=== PATIENT | male | born 1950 | race Two or more races ===

== ENCOUNTER 2017-10-16 05:24 | Inpatient (IN) | payer OTHER ==
--- NOTE | 2017-10-16 05:31 | EDPHY ---
H & P <Devyn Crawford - Last Filed: 10/16/17 08:04> Source: Patient, EMS <Clifford Coleman - Last Filed: 10/17/17 02:11> HPI/ROS: 0802: Spoke with Dr. Cox, radiologist, the preliminary head and neck CT angiogram reveals no abnormalities; details of report will follow in the next 30 minutes. Patient can now be placed in inpatient care. (Devyn Crawford) HPI CHIEF COMPLAINT: Dizziness worse with movement, nausea, vomiting HISTORY OF PRESENT ILLNESS: This patient very pleasant 67-year-old [place] male, and only speaks [place]an knees, his son-in-law is at bedside for translation, [facility] with nausea vomiting and dizziness that he describes as room spinning sensation. He denies neck pain , chest pain denies headache. He did have 3 episodes of vomiting with this. The dizziness woke him up from sleep. This started at 2:00 a.m. or about 4 hr ago. The dizziness has persisted. It is a room spinning sensation. It is worse when he goes to sit up. It is worse when he goes to open his eyes. It is worse with certain head positional movements. He prefers to lay back in the bed with his eyes closed as this prevents him from feeling further dizziness. He does report that he had this episode of dizziness 1 other time in 2012 in [facility]. No history of cardiovascular disease. No history of stroke. Past Medical History: Hypertension Past Surgical History: Denies surgical history Social History: Denies daily use drugs alcohol tobacco. Family History: Noncontributory ROS REVIEW OF SYSTEMS: A comprehensive 10 point review of systems is otherwise negative aside from elements mentioned in the history of present illness. Exam Constitutional appears well nontoxic, triage nursing summary reviewed, vital signs reviewed, awake/alert. Eyes normal conjunctivae and sclera, EOMI, PERRLA. HENT normal inspection, atraumatic, moist mucus membranes, no epistaxis, neck supple/ no meningismus, no raccoon eyes. Respiratory clear to auscultation bilaterally, normal breath sounds, no respiratory distress, no wheezing. Cardiovascular rate normal, regular rhythm, no murmur, no edema, distal pulses normal. Gastrointestinal soft, non-tender, no rebound, no guarding, normal bowel sounds, no distension, no pulsatile mass. Genitourinary no CVA tenderness. Musculoskeletal no midline vertebral tenderness, full range of motion, no calf swelling, no tenderness of extremities, no meningismus, good pulses, neurovascularly intact. Skin pink, warm, & dry, no rash, skin atraumatic. Neurologic awake, alert and oriented x 3, AAOx3, moves all 4 extremities equally, motor intact, sensory intact, CN II-XII intact, normal cerebellar, normal vision, normal speech. No focal neuro deficit on exam. However when he goes to sit up or move his head side to side he gets worsening dizziness. And additionally when he opens his eyes this dizziness becomes worse. He does have horizontal beating nystagmus. But no rotary nystagmus or vertical nystagmus. Psychiatric normal mood/affect. Heme/Lymph/Immune no lymphadenopathy. Differential Diagnosis: Includes but is not limited to in a particular order, acute vertigo, benign positional vertigo, Meniere's disease, posterior circulation stroke, dehydration, electrolyte disturbance Medical Decision Making: Plan for this patient IV establishment IV fluid bolus , p.o. meclizine, IV Valium 2.5 mg, gentle IV hydration, check basic blood work , CT scan head without contrast EKG, troponin re-evaluate. Re-evaluation: EKG interpretation by me on record in [employer] system. Impression time of EKG 6:01 a.m., this is sinus rhythm rate of 85. No acute ischemic change appreciated. 0659: I did go reassess this patient's time. He still complaining of dizziness it is somewhat improved. However he is too dizzy to go home. He will need to be admitted the hospital for vertigo. His CT scan of his head was unremarkable. Did not show any acute bleed. His blood work is unremarkable. Electrolytes appropriate. Nonischemic EKG. Normal troponin. No evidence of acute coronary syndrome or bleed in his head. Plan will be for admission hospitalist service for vertigo. 0707: Spoke with the hospitalist service Dr. Torres he has accepted admission. But did request that we do a CT angiogram of his head and neck. To rule out posterior circulation stroke. I do not believe he is having posterior circulation infarct causing his dizziness, however I believe this to be benign positional vertigo. However due to ongoing symptoms will proceed with CT angiogram head and neck. Plan will be for admission the hospital service for vertigo. If the CT angiogram head and neck does show posterior circulation stroke will consult Neurology. Dr. Crawford to follow up CT ANgio. 0730AM: Spoke with Dr. Torres again. Patient back from CT angiogram. Results are pending. I did recommend that he probably gets an inpatient MR as well. To make sure there is not a small infarct in the cerebellum. The CT angiogram will evaluate the blood vessels. He will have Neurology consult on this patient as well. Additionally did re-evaluate the time it is he is not vomiting. He is hemodynamically stable. Denies chest pain or shortness of breath. However does get worsening dizziness when he moves his head, or goes to sit up. (Clifford Coleman) Constitutional: Initial Vital Signs Temperature (C) 36.4 C 10/16/17 05:25 Heart Rate 87 10/16/17 05:25 Respiratory Rate 18 10/16/17 05:25 Blood Pressure 143/86 H 10/16/17 05:25 O2 Sat (%) 97 10/16/17 05:25 O2 Delivery Mode Nasal Cannula O2 (L/minute) 2 Allergies/Adverse Reactions: No Known Allergies Allergy (Unverified 10/16/17 05:46) Home Medications: Medication Instructions Recorded Lisinopril [Zestril 10 mg (*)] 10 mg PO DAILY 10/16/17 - Data Points Laboratory Results: Laboratory Results 10/16/17 05:30 10/16/17 05:30 Medications Given: Acetaminophen (Tylenol) 650 mg PO Q4HRS PRN PRN Reason: Pain, Mild/Fever, Can Take PO Stop: 04/14/18 07:14 Last Admin: 10/16/17 22:53 Dose: 650 mg Discontinued Medications Diazepam (Valium Injection) 2.5 mg IVP EDNOW ONE Stop: 10/16/17 05:43 Last Admin: 10/16/17 05:51 Dose: 2.5 mg Sodium Chloride (Ns) 1,000 mls @ 0 mls/hr IV EDNOW ONE; Wide Open PRN Reason: Protocol Stop: 10/16/17 05:42 Last Admin: 10/16/17 05:51 Dose: 1,000 mls Meclizine HCl (Meclizine Hcl) 25 mg PO EDNOW ONE Stop: 10/16/17 05:43 Last Admin: 10/16/17 05:51 Dose: 25 mg Ondansetron HCl (Zofran) 4 mg IVP EDNOW ONE Stop: 10/16/17 07:07 Last Admin: 10/16/17 07:07 Dose: 4 mg Departure <Devyn Crawford - Last Filed: 10/16/17 08:04> <Clifford Coleman - Last Filed: 10/17/17 02:11> - Departure Disposition: [facility] Inpatient Acute Clinical Impression: Vertigo, Dizziness Condition: Fair Report Scribed for: Devyn Crawford Report Scribed by: Kacey Yanez Date of Report: 10/16/17 Time of Report: 08:04 <Devyn Crawford - Last Filed: 10/16/17 08:04>
[2017-10-16] MEDS ORDERED: NS 1,000 ML IV ONE (05:41)
[2017-10-16] MEDS ORDERED: DIAZEPAM 10 MG/2 ML SYR IVP ONE (05:42)
[2017-10-16] MEDS ORDERED: MECLIZINE HCL 25 MG TAB PO ONE (05:42)
[2017-10-16] MEDS ORDERED: DIAZEPAM 10 MG/2 ML SYR ONE (05:43)
[2017-10-16 06:01] LABS: % IMMATURE GRANULYOCYTES 0.2 % (0.0-1.1); ABSOLUTE IMMATURE GRANULOCYTES 0.02 10^3/uL (0.00-0.10); ADD DIFF? NO; ADD MORPH? NO; ADD SCAN? NO; ATYPICAL LYMPHOCYTE FLAG 0 (0-99); FRAGMENT RBC FLAG 0 (0-99); HEMATOCRIT 47.3 % (40.0-51.0); HEMOGLOBIN 17.2 g/dL (13.7-17.5); LEFT SHIFT FLG 0 (0-99); LIPEMIA HEMOLYSIS FLAG 90 (0-99); MEAN CELL HEMOGLOBIN 30.4 pg (27.9-34.1); MEAN CELL HEMOGLOBIN CONCENTR. 36.4 g/dL (32.4-36.7); MEAN CELL VOLUME 83.7 fL (81.5-99.8); MEAN PLATELET VOLUME 10.2 fL (8.7-11.7); PLATELET CLUMPS FLAG 0 (0-99); PLATELET COUNT 267 10^3/uL (150-400); RED BLOOD CELL COUNT 5.65 10^6/uL (4.40-6.38); RED CELL DISTRIBUTION WIDTH 12.3 % (11.5-15.2)
--- NOTE | 2017-10-16 06:02 | CPEKG ---
Heart Rate: 85 RR Interval: 706 P-R Interval: 176 QRSD Interval: 84 QT Interval: 384 QTC Interval: 457 P [place]: 25 QRS [place]: 4 T Wave [place]: 22 EKG Severity - NORMAL ECG - EKG Impression: SINUS RHYTHM Electronically Signed By: Devyn Crawford 16-Oct-2017 15:16:30
[2017-10-16 06:09] LABS: APTT 26.2 SEC (23.0-38.0); INR 0.97 (0.83-1.16); PROTIME(PATIENT) 13.1 SEC (12.0-15.0)
[2017-10-16 06:10] LABS: ALANINE AMINOTRANSFERASE 37 IU/L (21-72); ALBUMIN 4.4 g/dL (3.5-5.0); ALKALINE PHOSPHATASE 101 IU/L (38-126); ANION GAP 17 mEq/L (8-16); ASPARTATE AMINOTRANSFERASE 25 IU/L (17-59); BILIRUBIN,TOTAL 0.4 mg/dL (0.1-1.4); BILIRUBIN-CONJUGATED 0.2 mg/dL (0.0-0.5); BILIRUBIN-UNCONJUGATED 0.2 mg/dL (0.0-1.1); CARBON DIOXIDE 19 mEq/l (22-31); CHLORIDE 106 mEq/L (97-110); CREATININE 0.8 mg/dL (0.7-1.3); GLOMERULAR FILTRATION RATE > 60; GLUCOSE 131 mg/dL (70-100); MAGNESIUM 1.8 mg/dL (1.6-2.3); SODIUM 142 mEq/L (134-144); TOTAL PROTEIN 7.5 g/dL (6.3-8.2)
[2017-10-16 06:22] LABS: CREATINE KINASE-MB FRACTION 3.18 ng/mL (0.00-3.19); TROPONIN I < 0.012 ng/mL (0.000-0.034)
[2017-10-16] MEDS ORDERED: ONDANSETRON 4 MG/2 ML VIAL ONE (07:05)
[2017-10-16] MEDS ORDERED: ONDANSETRON 4 MG/2 ML VIAL IVP ONE (07:06)
[2017-10-16] MEDS ORDERED: IOPAMIDOL (ISOVUE 370) 100 ML BTL IV ONE (07:09)
[2017-10-16] MEDS ORDERED: ONDANSETRON 4 MG/2 ML VIAL IVP PRN (07:15)
[2017-10-16] MEDS ORDERED: ONDANSETRON DISINTEGRATING 4 MG TAB PO PRN (07:15)
--- NOTE | 2017-10-16 07:21 | PDGENHP ---
History and Physical - Chief Complaint Dizziness - History of Present Illness 67 yo M Emir[place] speaking M w/ HTN presents with acute vertigo. Patient was woken from sleep with acute onset of a sensation of room spinning around 2 AM. This was accompanied by nausea and vomiting. The vertigo is somwhat positional in nature and is also exacerbated by eye opening. Symptoms were persistent despite meclizine and valium in the ED so he was admitted for observation. At the time of my evaluation patient remains quite symptomatic with only eye opening. History Information - Allergies/Home Medication List Allergies/Adverse Reactions: No Known Allergies Allergy (Unverified 10/16/17 05:46) Home Medications: Lisinopril [Zestril 20 mg (*)] 20 mg PO DAILY 10/16/17 [Last Taken Unknown] I have personally reviewed and updated: family history, medical history - Past Medical History hypertension - Family History Additional family history: Denies family hx of stroke - Social History Smoking Status: Never smoked Review of Systems Review of Systems: ROS: 10pt was reviewed & negative except for what was stated in HPI & below Physical Exam Physical Exam: Temp Pulse Resp BP Pulse Ox 36.4 C 76 16 140/87 H 95 10/16/17 05:25 10/16/17 06:03 10/16/17 06:03 10/16/17 06:03 10/16/17 06:03 Constitutional: not in pain, uncomfortable Eyes: PERRL, EOMI, other (R end stage horizontal nystagmus) Ears, Nose, Mouth, Throat: moist mucous membranes, no oral mucosal ulcers Cardiovascular: regular rate and rhythym, no murmur, rub, or gallop Respiratory: no respiratory distress, clear to auscultation Gastrointestinal: normoactive bowel sounds, soft, non-tender abdomen Skin: warm Musculoskeletal: full muscle strength, no muscle tenderness Neurologic: AAOx3, sensation intact bilaterally, CN II-XII Intact, No weakness, No numbness, No facial droop Lab Data & Imaging Review 10/16/17 05:30 10/16/17 05:30 WBC 8.53 10^3/uL (3.80-9.50) 10/16/17 05:30 RBC 5.65 10^6/uL (4.40-6.38) 10/16/17 05:30 Hgb 17.2 g/dL (13.7-17.5) 10/16/17 05:30 Hct 47.3 % (40.0-51.0) 10/16/17 05:30 MCV 83.7 fL (81.5-99.8) 10/16/17 05:30 MCH 30.4 pg (27.9-34.1) 10/16/17 05:30 MCHC 36.4 g/dL (32.4-36.7) 10/16/17 05:30 RDW 12.3 % (11.5-15.2) 10/16/17 05:30 Plt Count 267 10^3/uL (150-400) 10/16/17 05:30 MPV 10.2 fL (8.7-11.7) 10/16/17 05:30 Neut % (Auto) 77.1 % (39.3-74.2) H 10/16/17 05:30 Lymph % (Auto) 17.0 % (15.0-45.0) 10/16/17 05:30 Blount % (Auto) 5.0 % (4.5-13.0) 10/16/17 05:30 Eos % (Auto) 0.5 % (0.6-7.6) L 10/16/17 05:30 Baso % (Auto) 0.2 % (0.3-1.7) L 10/16/17 05:30 Nucleat RBC Rel Count 0.0 % (0.0-0.2) 10/16/17 05:30 Absolute Neuts (auto) 6.57 10^3/uL (1.70-6.50) H 10/16/17 05:30 Absolute Lymphs (auto) 1.45 10^3/uL (1.00-3.00) 10/16/17 05:30 Absolute Monos (auto) 0.43 10^3/uL (0.30-0.80) 10/16/17 05:30 Absolute Eos (auto) 0.04 10^3/uL (0.03-0.40) 10/16/17 05:30 Absolute Basos (auto) 0.02 10^3/uL (0.02-0.10) 10/16/17 05:30 Absolute Nucleated RBC 0.00 10^3/uL (0-0.01) 10/16/17 05:30 Immature Gran % 0.2 % (0.0-1.1) 10/16/17 05:30 Immature Gran # 0.02 10^3/uL (0.00-0.10) 10/16/17 05:30 PT 13.1 SEC (12.0-15.0) 10/16/17 05:30 INR 0.97 (0.83-1.16) 10/16/17 05:30 APTT 26.2 SEC (23.0-38.0) 10/16/17 05:30 Sodium 142 mEq/L (134-144) 10/16/17 05:30 Potassium 4.0 mEq/L (3.5-5.2) 10/16/17 05:30 Chloride 106 mEq/L (97-110) 10/16/17 05:30 Carbon Dioxide 19 mEq/l (22-31) L 10/16/17 05:30 Anion Gap 17 mEq/L (8-16) H 10/16/17 05:30 BUN 13 mg/dL (7-23) 10/16/17 05:30 Creatinine 0.8 mg/dL (0.7-1.3) 10/16/17 05:30 Estimated GFR > 60 10/16/17 05:30 Glucose 131 mg/dL (70-100) H 10/16/17 05:30 Calcium 10.0 mg/dL (8.5-10.4) 10/16/17 05:30 Magnesium 1.8 mg/dL (1.6-2.3) 10/16/17 05:30 Total Bilirubin 0.4 mg/dL (0.1-1.4) 10/16/17 05:30 Conjugated Bilirubin 0.2 mg/dL (0.0-0.5) 10/16/17 05:30 Unconjugated Bilirubin 0.2 mg/dL (0.0-1.1) 10/16/17 05:30 AST 25 IU/L (17-59) 10/16/17 05:30 ALT 37 IU/L (21-72) 10/16/17 05:30 Alkaline Phosphatase 101 IU/L (38-126) 10/16/17 05:30 Creatine Kinase 49 IU/L (0-224) 10/16/17 05:30 CK-MB (CK-2) Fraction 3.18 ng/mL (0.00-3.19) 10/16/17 05:30 Troponin I < 0.012 ng/mL (0.000-0.034) 10/16/17 05:30 Total Protein 7.5 g/dL (6.3-8.2) 10/16/17 05:30 Albumin 4.4 g/dL (3.5-5.0) 10/16/17 05:30 Lipase 126 IU/L (23-300) 10/16/17 05:30 Imaging Review: CTH with no acute findings. EKG Interpretation: Positive for: normal sinsus rhythm Assessment & Plan Assessment: 67 yo Emirati speaking M w/ HTN presents w/ acute onset vertigo. Plan: 1. Acute vertigo - Awoke patient from sleep about 4 hours prior to presentation ; accompanied by nausea and vomiting. Positional exacerbation of symptoms consistent with BPPV. However, noting severity, acute onset during sleep, and persistence of symptoms posterior circulation stroke is another consideration. - CT head with no acute findings - CTA Head and neck for further evaluation - Will not call stroke alert noting patient now out of window for tPA (5.5 hours post symptom onset). - Neurology consult placed - Consider MRI Diet - Regular Code - Full Ppx - SCDs Dispo - Admit to observation status
--- NOTE | 2017-10-16 09:58 | ASMTCMCOM ---
CM Note CM Note Notes: Spoke w/pt's dtr Martín, pt and spouse are Paraguayan and do not speak nepali. Dtr has concerns about paying for hospital stay. CM sent email to Medicaid to follow up with pt on Wednesday, dtr also given card for financial counseling. Dc needs unclear, RODY w/f. Date Signed: 10/16/2017 09:57 AM Electronically Signed By:Trinidad Alves RN
--- NOTE | 2017-10-16 13:25 | NEUROPROG ---
Assessment: [id number] CC: Vertigo HPI: Pt admitted to [facility] on 10/16/17 for a complaint of acute vertigo. He was awoken in the evening from sleep with acute onset of vertigo around 2 am. This was associated with N/V and was somewhat positional. I initially saw the patient on 10/16/17. He continued to complain of vertigo. His daughter provided translation but was not available. I spoke with his nurse and let her know to relay the plan of obtaining brain MRI and doing vestibular rehab exercises for a suspected peripheral vertigo syndrome. I will call her today or tomorrow after reviewing MRI results. PMHx: HTN Meds: lisinopril SHx: speaks Afghan, no tobacco FHx: no stroke ROS: Pt denied acute fever, total vision loss, active severe chest pain, respiratory failure, total body severe rash, total bowel/bladder incontinence, psychosis, active seizures, or active bleeding O: VS reviewed General: Alert Eyes: Fundoscopic exam not able to visualize optic disks CV: Heart RRR, no murmur, no carotid bruit Lungs: Clear to auscultation bilaterally, no rhonci or rales Neuro: - Mental: difficult to fully assess due to language barrier but no clear problems seen in orientation, attention, speech, memory, or fund of knowledge - Cranial Nerves: . II: PERRL, VFFTC . III/IV/: EOMI, no nystagmus, normal smooth pursuits, no Ptosis . V: facial sensation intact to LT . VII: face symmetric to eye closure and smile . VIII: hearing intact to conversation . IX/X: uvula raises symmetrically . XI: SCM 5/5 B/L strength . XII: tongue protrudes midline w/nl strength - Motor: . Tone: normal tone in all 4 extrem . Strength: no pronator drift, strength 5/5 throughout (B/L delt, bic, tri, hand contract graphic designer, hf/he, df/pf) - Reflexes: B/L bic/BR/patella 2/4 - Sensory: all 4 extrem intact to light touch - Coord: [id number] wnl, SONY wnl, [id number] wnl - Gait: deferred Labs: 10/16/17- CBC wnl, Coags wnl, CMP CO2 19L Anion Gap 17H Gluc 131H Rads: 10/16/17- Head CT: normal (I personally visualized the image on 10/16/17) 10/16/17- CTA head/neck: unremarkable Assessment: 1. Acute Vertigo Syndrome: Central Cause (stroke, etc.) versus more peripheral cause (BPPV, vestibular neuronitis). Will get brain MRI to better characterize and treat symptomatically. Plan: - Brain MRI w/o con - PT consult for irina maneuver and vestibular rehab exercises - Reasonable to use meclizine and/or valium if needed for symptomatic relief of vertigo - F/U in neurology clinic 1-4 weeks after discharge Objective: Vital Signs Temp Pulse Resp BP Pulse Ox 36.2 C 71 28 H 133/81 H 95 10/16/17 11:20 10/16/17 11:20 10/16/17 11:20 10/16/17 11:20 10/16/17 11:20 10/15/17 10/16/17 10/17/17 05:59 05:59 05:59 Intake Total 1000 Output Total 1050 Balance -50 PT 13.1 SEC (12.0-15.0) 10/16/17 05:30 INR 0.97 (0.83-1.16) 10/16/17 05:30 Allergies/Adverse Reactions: No Known Allergies Allergy (Unverified 10/16/17 05:46)
[2017-10-16] MEDS: ACETAMINOPHEN 325 MG TAB PO PRN (22:53)
[2017-10-17] MEDS ORDERED: MECLIZINE HCL 25 MG TAB PO PRN (11:39)
[2017-10-17] MEDS: predniSONE 20 MG TAB PO SCH (12:11)
--- NOTE | 2017-10-17 13:25 | NEUROPROG ---
Assessment: [id number] CC: Peripheral Vertigo Syndrome Narrative Summary: Pt admitted to [facility] on 10/16/17 for a complaint of acute vertigo. He was awoken in the evening from sleep with acute onset of vertigo around 2 am. This was associated with N/V and was somewhat positional. I initially saw the patient on 10/16/17. He continued to complain of vertigo. His daughter provided translation but was not available. I spoke with his nurse and let her know to relay the plan of obtaining brain MRI and doing vestibular rehab exercises for a suspected peripheral vertigo syndrome. I will call her today or tomorrow after reviewing MRI results. HPI: F/U 10/17/17. Brain MRI unremarkable. I spoke with the patient and his daughter (whom provided translation) at the bedside. Pt feeling better today. PMHx: HTN Meds: lisinopril SHx: speaks Mexican, no tobacco FHx: no stroke ROS: Pt denied acute fever, total vision loss, active severe chest pain, respiratory failure, total body severe rash, total bowel/bladder incontinence, psychosis, active seizures, or active bleeding Labs: 10/16/17- CBC wnl, Coags wnl, CMP CO2 19L Anion Gap 17H Gluc 131H Rads: 10/16/17- Head CT: normal 10/16/17- CTA head/neck: unremarkable 10/16/17- Brain MRI w/o con: normal Assessment: 1. Peripheral Vertigo Syndrome: Likely bppv but vestibular neuronitis possible. Non-focal neurologic exam and normal brain MRI on 10/16/17. Will treat symptomatically. Plan: - PT consult for irina maneuver and vestibular rehab exercises - 7 day course of prednisone 60 mg in case this is vestibular neuronitis - F/U in neurology clinic 1-4 weeks after discharge 35 min spent with patient, majority of time spent counseling on prognosis and treatment options. Neurology will sign off. Please consult for any change in neurologic status or any questions. Objective: Vital Signs Temp Pulse Resp BP Pulse Ox 36.9 C 77 18 126/80 H 93 10/17/17 12:00 10/17/17 12:00 10/17/17 12:00 10/17/17 12:00 10/17/17 12:00 10/16/17 10/17/17 10/18/17 05:59 05:59 05:59 Intake Total 1000 Output Total 1090 Balance -90 PT 13.1 SEC (12.0-15.0) 10/16/17 05:30 INR 0.97 (0.83-1.16) 10/16/17 05:30 Allergies/Adverse Reactions: No Known Allergies Allergy (Unverified 10/16/17 05:46)
--- NOTE | 2017-10-17 17:07 | HOSPPROG ---
Hospitalist Progress Note Assessment/Plan: DIAGNOSES: -acute peripheral vertigo, likely vestibular neuronitis etiology, some improvement today but still not able to ambulate safely -hypertension controlled on his usual medicine PLANS: -I examined the patient together today with Dr. waldrop and reviewed treatment plan with him also -will add prednisone at 60 mg daily for 7 days at this time -resume meclizine at this time as well As he is unsafe to a stand or ambulate independently here, will need ongoing in- hospital management of his vertigo so will change to inpatient status SUBJECTIVE: Less vertigo, and notably decreased nausea, 8 a small bit of food this morning However was only able to walk with assistance as far as his door when he had significant vertigo requiring he be assisted back to his bed with significant fall risk No headache, earache, decreased hearing, or tinnitus OBJECTIVE Vitals reviewed: Stable without fever Exam: alert oriented skin warm dry color ok resps not labored lungs clear BSs heart regular abd soft nondistended nontender, bowel sounds present limbs warm, no edema iv site ok MRI of the brain was done yesterday, I reviewed the images today with Dr. Yi, no evidence of mass bleed stroke or other neurologic cause of his vertigo Objective: Vital Signs Temp Pulse Resp BP Pulse Ox 36.6 C 91 20 117/68 91 L 10/17/17 16:00 10/17/17 16:00 10/17/17 16:00 10/17/17 16:00 10/17/17 16:00 10/16/17 10/17/17 10/18/17 06:59 06:59 06:59 Intake Total 1000 Output Total 1090 Balance -90 PT 13.1 SEC (12.0-15.0) 10/16/17 05:30 INR 0.97 (0.83-1.16) 10/16/17 05:30 ICD10 Worksheet Patient Problems: Problems Problem Status Onset Dizziness Acute Vertigo Acute
--- NOTE | 2017-10-17 17:55 | PDMN ---
Medical Necessity Medical necessity: C/M review: Patient meets INPT criteria under [facility] M-152 Dizziness; Acute and persistent - peripheral vertigo likely vestibular neuronitis etiology, inability to ambulate safely, patient unable to stand or ambulate independently, significant fall risk, patient medically unsafe for discharge requiring ongoing oral Meclizine, initiate oral prednisone, acute inpt PT, comorbid hypertension. MD anticipates > 2 MN LOS for ongoing med nec for eval and TX of above.
--- NOTE | 2017-10-18 08:59 | HOSPPROG ---
Hospitalist Progress Note Assessment/Plan: 67 yo Anguillan speaking M w/ HTN presents w/ acute onset vertigo. Tanya today is my 1st encounter with the patient. Chart reviewed. * acute peripheral vertigo. Likely vestibular neuronitis -started on prednisone 60 mg daily will be on this for a total of 7 days -CT of head without acute findings, MRI without any acute findings -patient continues to have some difficulty w walking * hypertension -bp stable this morning *dvt prophylaxis: LMWH initiated *Plan: will see how Mr Polanco is in the morning, not quite ready for dc Subjective: Nghia has no complaints. Objective: Vital Signs Temp Pulse Resp BP Pulse Ox 36.8 C 85 14 129/83 H 93 10/18/17 08:00 10/18/17 08:00 10/18/17 08:00 10/18/17 08:00 10/18/17 08:00 PT 13.1 SEC (12.0-15.0) 10/16/17 05:30 INR 0.97 (0.83-1.16) 10/16/17 05:30 - Physical Exam Constitutional: no apparent distress, appears nourished Eyes: PERRL, other (+ nystagmus when he looks upward and to the right) Ears, Nose, Mouth, Throat: hearing normal Cardiovascular: regular rate and rhythym Respiratory: no respiratory distress Gastrointestinal: normoactive bowel sounds Skin: warm Musculoskeletal: generalized weakness Psychiatric: interacting appropriately ICD10 Worksheet Patient Problems: Problems Problem Status Onset Vertigo Acute Dizziness Acute
[2017-10-18] MEDS: predniSONE 20 MG TAB PO SCH (09:05)
[2017-10-18] MEDS: LISINOPRIL 10 MG TAB PO SCH (09:06)
--- NOTE | 2017-10-18 16:19 | ASMTCMCOM ---
CM Note CM Note Notes: [employer] met w/ pt and spoke w/ dtr on the phone. Pt does not qualify for Medicaid at this time. Pt will most likely d/c independent when medically stable. CM to follow. Plan: Independent Date Signed: 10/18/2017 04:19 PM Electronically Signed By:BOYD Frey
[2017-10-18] MEDS: ACETAMINOPHEN 325 MG TAB PO PRN (22:42)
[2017-10-19] MEDS ORDERED: ENOXAPARIN 40 MG/0.4 ML SYR SC SCH (09:00)
[2017-10-19] MEDS: predniSONE 20 MG TAB PO SCH (09:31)
[2017-10-19] MEDS: LISINOPRIL 10 MG TAB PO SCH (09:31)
[2017-10-19 11:40] VITALS: BP 145/101; PULSE 86; RESP 12; TEMP 97.5; O2SAT 93
--- NOTE | 2017-10-19 11:52 | HOSPPROG ---
Hospitalist Progress Note Assessment/Plan: 67 yo North Korean speaking M w/ HTN presents w/ acute onset vertigo. * acute peripheral vertigo. Likely vestibular neuronitis -started on prednisone 60 mg daily will be on this for a total of 7 days -CT of head without acute findings, MRI without any acute findings -patient continues to have some difficulty w walking -reviewed his care with his son via phone/ patient is still dizzy, but can walk w minimal assist and is eating and drinking well * hypertension -bp elevated to *dvt prophylaxis: LMWH initiated *Plan: dc home today Subjective: Yek is c/o some dizziness Objective: Vital Signs Temp Pulse Resp BP Pulse Ox 36.4 C 86 12 145/101 H 93 10/19/17 11:40 10/19/17 11:40 10/19/17 11:40 10/19/17 11:40 10/19/17 11:40 10/18/17 10/19/17 10/20/17 05:59 05:59 05:59 Intake Total 550 Balance 550 PT 13.1 SEC (12.0-15.0) 10/16/17 05:30 INR 0.97 (0.83-1.16) 10/16/17 05:30 - Physical Exam Constitutional: no apparent distress, appears nourished, not in pain Eyes: PERRL Ears, Nose, Mouth, Throat: hearing normal Respiratory: no respiratory distress Skin: warm Musculoskeletal: generalized weakness Neurologic: AAOx3 Psychiatric: interacting appropriately ICD10 Worksheet Patient Problems: Problems Problem Status Onset Dizziness Acute Vertigo Acute
--- NOTE | 2017-10-19 13:40 | GDS ---
[f rep st] DISCHARGE SUMMARY DISCHARGE DIAGNOSES: 1. Vertigo, likely vestibular neuronitis. 2. Hypertension. CONSULTATION: Dr. Andrew Fitch. HISTORY: Briefly, the patient is a Hungarian-speaking 67-year-old gentleman. He woke up in the [facility] with acute onset of vertigo with associated nausea and vomiting. It was mainly positional. He wilkins d a brain MRI that did not show anything acute. Physical therapy worked with him and did Tom maneu vers, which actually did improve his symptoms. He had multiple other imaging done, including a head CT, which was a normal CT scan of the head. Neck and head CTA were stable. His symptoms improved th roughout his stay. He continues to complain of some dizziness at discharge. He will be discharged h ome and further followup with his primary care provider and continue the prednisone for 4 more days. HOSPITAL COURSE: 1. Acute peripheral vertigo, likely vestibular neuronitis. He has done very well. I reviewed his c are via his son because the patient does not speak Romansh. He is able to eat and drink well. His g ait feels a little off. Recommend he get a front-wheeled walker. 2. Hypertension, on ELLY inhibitor. DISCHARGE CONDITION: Stable. Blood pressure is 129/77, heart rate 74, respiratory rate is 14, O2 sa ts on room air 94%, temperature is 36.6 Celsius. DISCHARGE MEDICATIONS: Please see the EMR. DISCHARGE INSTRUCTIONS: 1. Further followup with his primary care provider. 2. Further followup with Neurology if his symptoms should reappear. Greater than 30 minutes discharging and coordinating the patient's care. /[id number]/MODL
--- NOTE | 2017-10-19 16:51 | ASDISCHSUM ---
Discharge Information Plan Status:Home with No Needs Medically Cleared to Leave:10/18/2017 Discharge Date:10/19/2017 02:41 PM CM D/C Disposition: ADT D/C Disposition:Home, Routine, Self-Care Projected Discharge Date:10/19/2017 12:00 AM Transportation at D/C: Discharge Delay Reason: Follow-Up Date:10/19/2017 12:00 AM Discharge Slot: Final Diagnosis: Placement Information Patient Contact Information Contact Name:SHLOMO Relationship:Son Address:[address] Work Phone: City:[place] [facility] Phone: [facility]/Zip Code:[place] [address] Email: Financial Information Financial Class:Self-Pay Primary Plan Desc:WE CARE Primary Plan Number:99 Secondary Plan Desc: Secondary Plan Number: Assessment Information [facility] CM Progress Note CM Note CM Note Notes: Spoke w/pt's dtr Martín, pt and spouse are Peruvian and do not speak mexican. Dtr has concerns about paying for hospital stay. CM sent email to Medicaid to follow up with pt on Wednesday, dtr also given card for financial counseling. Dc needs unclear, RODY w/f. Date Signed: 10/16/2017 09:57 AM Electronically Signed By:Trinidad Alves RN [facility] CM Progress Note CM Note CM Note Notes: ChrisDablanco met w/ pt and spoke w/ dtr on the phone. Pt does not qualify for Medicaid at this time. Pt will most likely d/c independent when medically stable. CM to follow. Plan: Independent Date Signed: 10/18/2017 04:19 PM Electronically Signed By:BOYD Frey Intervention Information
== END 2017-10-19 14:41 | disposition home or self-care (01) | DRG 149 ==
LOC: EDUNIT# → INTOOBSV 07:06 → F3E 08:39 → OBSVTOIN 10-17 17:08
PROVIDERS: ADMIT Student in an Organized Health Care Education/Training Program; ATTEND Student in an Organized Health Care Education/Training Program
DX: H81.399 Other peripheral vertigo, unspecified ear (principal); H81.20 Vestibular neuronitis, unspecified ear; I10 Essential (primary) hypertension
CPT/HCPCS: 96374; 97112-GP; 97161-GP; 97530-GP; G0378; J1650; J2405; Q9967